=== PATIENT | female | born 1980 | race Caucasian/White ===

== ENCOUNTER 2017-05-30 15:21 | Emergency (ER) | payer MEDICAID ==
[2017-05-30 15:52] VITALS: BP 150/98
--- NOTE | 2017-05-30 16:20 | UC ---
FLU HPI - HPI Summary HPI Summary: Pt presents with runny nose, fatigue, and body aches for the last 2 days. She tells me that her son had the flu 2 weeks ago and she thinks she has it now. She has been taking tylenol for her discomfort. Has felt feverish, but has not taken her temperature. Denies chills, cough, SOB, chest pain, abdominal pain, n/ v/d/c. She is still smoking daily. - History of Current Complaint Chief Complaint: UCRespiratory Stated Complaint: STUFFY NOSE,AND ACHES Hx Obtained From: Patient Hx Last Menstrual Period: now Onset/Duration: Gradual Onset Severity Currently: Mild Severity Initially: Moderate Pain Intensity: 4 Pain Scale Used: 0-10 Numeric - Allergy/Home Medications Allergies/Adverse Reactions: Allergies Allergy/AdvReac Type Severity Reaction Status Date / Time No Known Allergies Allergy Verified 05/30/17 15:51 PMH/Surg Hx/FS Hx/Imm Hx Previously Healthy: Yes - Surgical History Surgical History: None - Family History Known Family History: Positive: None - Social History Occupation: Employed Full-time Lives: With Family Alcohol Use: None Substance Use Type: None Smoking Status (MU): Current Every Day Smoker Amount Used/How Often: 4-5 PER DAY Have You Smoked in the Last Year: Yes Household Exposure Type: Cigarettes Cessation Counseling: Counseled 3+Min - 10 Min - Immunization History Most Recent Tetanus Shot: pt unsure Review of Systems Constitutional: Fatigue, Other - Body aches Skin: Negative Eyes: Negative ENT: Nasal Discharge Respiratory: Negative Cardiovascular: Negative Gastrointestinal: Negative Neurological: Negative Psychological: Negative All Other Systems Reviewed And Are Negative: Yes Physical Exam Triage Information Reviewed: Yes Appearance: No Pain Distress, Well-Nourished, Ill-Appearing Vital Signs: Initial Vital Signs Temp 98.7 F 05/30/17 15:48 Pulse 83 05/30/17 15:48 Resp 18 05/30/17 15:48 BP 150/98 05/30/17 15:48 Pulse Ox 100 05/30/17 15:48 Vital Signs Reviewed: Yes Eyes: Positive: Conjunctiva Clear. Negative: Conjunctiva Inflamed, Discharge ENT: Positive: Hearing grossly normal, Pharynx normal, Nasal drainage, TMs normal, Uvula midline. Negative: Pharyngeal erythema, Nasal congestion, TM bulging, TM dull, TM red, Tonsillar swelling, Tonsillar exudate, Hoarse voice, Sinus tenderness Neck: Positive: Supple, Nontender, No Lymphadenopathy Respiratory: Positive: Chest non-tender, Lungs clear, Normal breath sounds, No respiratory distress, No accessory muscle use Cardiovascular: Positive: RRR, No Murmur, Pulses Normal Neurological: Positive: Alert, Fatigued Psychological: Positive: Age Appropriate Behavior Skin: Negative: rashes Flu Course/Dx - Course Course Of Treatment: POC flu negative. Given her recent exposure to the flu and her current symptoms - new CDC guidelines recommend treatment. - Differential Dx/Diagnosis Provider Diagnoses: Influenza Discharge - Discharge Plan Condition: Stable Disposition: HOME Prescriptions: Oseltamivir CAP* [Tamiflu CAP*] 75 mg PO BID #10 cap Patient Education Materials: Influenza (ED) Referrals: No Primary Care Phys,NOPCP [Primary Care Provider] - Additional Instructions: If you develop a fever, shortness of breath, chest pain, new or worsening symptoms - please call your PCP or go to the ED. Your blood pressure was high at todays visit. Please see your primary provider within 4 weeks for recheck and re-evaluation
== END 2017-05-30 16:38 | disposition home or self-care (01) ==
LOC: UCEAST 15:21
DX: J11.1 Influenza due to unidentified influenza virus with other respiratory manifestations (principal); F17.210 Nicotine dependence, cigarettes, uncomplicated
CPT/HCPCS: 87502; 99212; G0463

== ENCOUNTER 2017-10-03 19:01 | Emergency (ER) | payer OTHER ==
[2017-10-03 19:50] VITALS: BP 127/74
[2017-10-03] MEDS ORDERED: Mupirocin 2% OINT* TUBE TOPICAL ONE (20:03)
--- NOTE | 2017-10-03 20:14 | UC ---
Skin Complaint HPI - HPI Summary HPI Summary: 37 year old female with burn to her lips. She reports she cooked an egg using a microwave and when she took her first bite, the egg burned her lip. She has been applying ice but no other complaints. - History of Current Complaint Chief Complaint: UCBurn Time Seen by Provider: 10/03/17 19:55 Stated Complaint: BURN ON LIPS Hx Last Menstrual Period: 09/24/17 Onset/Duration: Sudden Onset Onset Severity: Mild Pain Intensity: 8 Location: Diffuse - Allergy/Home Medications Allergies/Adverse Reactions: Allergies Allergy/AdvReac Type Severity Reaction Status Date / Time No Known Allergies Allergy Verified 10/03/17 19:50 Home Medications: Home Medications NK [No Home Medications Reported] 10/03/17 [History Confirmed 10/03/17] Review of Systems Constitutional: Negative Skin: Other - burn Eyes: Negative ENT: Negative Respiratory: Negative Cardiovascular: Negative Gastrointestinal: Negative Genitourinary: Negative Motor: Negative Neurovascular: Negative Musculoskeletal: Negative Neurological: Negative Psychological: Negative All Other Systems Reviewed And Are Negative: Yes PMH/Surg Hx/FS Hx/Imm Hx - Surgical History Surgical History: None Surgery Procedure, Year, and Place: denies - Family History Known Family History: Positive: None - Social History Alcohol Use: None Substance Use Type: None Smoking Status (MU): Current Every Day Smoker Amount Used/How Often: 4-5 PER DAY Have You Smoked in the Last Year: Yes Household Exposure Type: Cigarettes - Immunization History Most Recent Tetanus Shot: pt unsure Physical Exam Triage Information Reviewed: Yes Appearance: Well-Appearing, No Pain Distress Vital Signs: Initial Vital Signs Temp 37.3 C 10/03/17 19:46 Pulse 55 10/03/17 19:46 Resp 18 10/03/17 19:46 BP 127/74 10/03/17 19:46 Pulse Ox 97 10/03/17 19:46 Respiratory Exam: Normal Cardiovascular Exam: Normal Musculoskeletal Exam: Normal Skin: Positive: Other - superifical burn to lip, no blister, 0.5cm area No tongue involvment Course/Dx - Differential Diagnoses - Skin Complaint Differential Diagnoses: Cellulitis, Impetigo, Other - Diagnoses Provider Diagnoses: Superifical burn to lips. ICE. Topical abx Discharge - Sign-Out/Discharge Documenting (check all that apply): Discharge/Admit/Transfer - Discharge Plan Condition: Good Disposition: HOME Patient Education Materials: Superficial Burn (ED), Superficial Burn (DC) Referrals: No Primary Care Phys,NOPCP [Primary Care Provider] - - Billing Disposition and Condition Condition: GOOD Disposition: HOME
== END 2017-10-03 20:30 | disposition home or self-care (01) ==
LOC: UCEAST 19:01
DX: T20.02XA Burn of unspecified degree of lip(s), initial encounter (principal); X10.1XXA Contact with hot food, initial encounter; Y93.G3 Activity, cooking and baking; Y92.9 Unspecified place or not applicable; F17.210 Nicotine dependence, cigarettes, uncomplicated
CPT/HCPCS: 99212; G0463

== ENCOUNTER 2018-04-16 10:28 | Emergency (ER) | payer OTHER ==
[2018-04-16 10:50] VITALS: BP 136/78
--- NOTE | 2018-04-16 11:30 | UC ---
Throat Pain/Nasal Suleiman HPI - HPI Summary HPI Summary: 37 y/o female presents to the urgent care c/o sinus congestion, pain and moderate yellowish nasal discharge w/ PND for the past 2 weeks. Pt states she has taking OTC medication w/o any improvement. this morning her both eye are mildly red. she is requesting influenza test since last year she had similar symptoms and it was the flu. Pt states sinus pain is 8/10. she feels body aches , but denies fever, SOB, chest pain, abdominal pain, dizziness, N/V/d, ALY. - History of Current Complaint Chief Complaint: UCGeneralIllness Stated Complaint: SINUS ISSUE Time Seen by Provider: 04/16/18 11:04 Hx Obtained From: Patient Hx Last Menstrual Period: 04/08/18 Onset/Duration: Gradual Onset, Lasting Weeks - 2 weeks, Still Present, Worse Since - 3 days Severity: Moderate Pain Intensity: 8 - sinus pain Pain Scale Used: 0-10 Numeric Cough: Nonproductive Associated Signs & Symptoms: Positive: Sinus Discomfort, Nasal Discharge - yellowish. Negative: Dysphagia, Wheezing, Fever - Epiglottits Risk Factors Epiglottis Risk Factors: Negative - Allergies/Home Medications Allergies/Adverse Reactions: Allergies Allergy/AdvReac Type Severity Reaction Status Date / Time No Known Allergies Allergy Verified 04/16/18 10:45 Home Medications: Home Medications Acetaminophen TAB* [Tylenol TAB*] 650 mg PO Q4H PRN 04/16/18 [History Confirmed 04/16/18] PMH/Surg Hx/FS Hx/Imm Hx Previously Healthy: Yes Respiratory History: Asthma - as a child, now controlled - Surgical History Surgical History: None Surgery Procedure, Year, and Place: denies - Family History Known Family History: Positive: Hypertension, Diabetes - Social History Occupation: Employed Full-time Lives: With Family Alcohol Use: None Substance Use Type: None Smoking Status (MU): Current Every Day Smoker Amount Used/How Often: 3 cigs PER DAY Have You Smoked in the Last Year: Yes Household Exposure Type: Cigarettes - Immunization History Most Recent Tetanus Shot: pt unsure Review of Systems All Other Systems Reviewed And Are Negative: Yes Constitutional: Positive: Chills, Other - body aches Skin: Positive: Negative Eyes: Positive: Negative ENT: Positive: Ear Ache - b/L ear pressure, Nasal Discharge - yellowish, Sinus Congestion, Sinus Pain/Tenderness, Other - PND yellowish Respiratory: Positive: Negative Cardiovascular: Positive: Negative Gastrointestinal: Positive: Negative Genitourinary: Positive: Negative Motor: Positive: Negative Neurovascular: Positive: Negative Musculoskeletal: Positive: Negative Neurological: Positive: Negative Psychological: Positive: Negative Is Patient Immunocompromised?: No Physical Exam - Summary Physical Exam Summary: Vitals: reviewed General: Well developed, well-nourished female patient with NAD. Head and face: Normocephalic and atraumatic, Positive tenderness over the frontal and maxillary sinuses.. Eyes: PERRLA, EOMI x 2. Normal conjunctiva. No eye discharge. ENT: Ears and TM with normal limits. Nose: edematous and erythematous nasal mucosa with with yellowish discharge and erythematous mucosa. Pharynx with erythema, no exudate. moderate +PND yellowish Neck: Supple, no JVD, no carotid bruits and no lymphadenopathy. Lungs: clear, no rales, no rhonchi, no wheezes. CVS: RRR, S1 and S2 present no murmurs or gallops appreciated. Abdomen: soft nontender with positive bowel sounds. Extremities: no edema noted. Neuro: WNL. Skin: warm and dry Triage Information Reviewed: Yes Vital Signs: Initial Vital Signs Temp 98.5 F 04/16/18 10:46 Pulse 93 04/16/18 10:46 Resp 16 04/16/18 10:46 BP 136/78 04/16/18 10:46 Pulse Ox 100 04/16/18 10:46 Throat Pain/Nasal Course/Dx - Course Course Of Treatment: 37 y/o female presents to the urgent care c/o sinus congestion, pain and moderate yellowish nasal discharge w/ PND for the past 2 weeks. Pt states she has taking OTC medication w/o any improvement. this morning her both eye are mildly red. she is requesting influenza test since last year she had similar symptoms and it was the flu. Pt states sinus pain is 8 /10. she feels body aches, but denies fever, SOB, chest pain, abdominal pain, dizziness, N/V/d, ALY. Hx obtained. Pt w/ acute bactrial sinusitis on examination. Rapid influenza A&b=negative. Pt with 2 weeks of symptoms getting worse. Pt Rx Augmentin PO and flonase nasal spray. Discharge instructions explained to Pt. Advised to Return to the clinic or PCP if symptoms do not improve.Pt understood and agreed with plan of care. - Differential Dx/Diagnosis Differential Diagnosis/HQI/PQRI: Laryngitis, Otitis Media, Pharyngitis, Sinusitis, Tonsillitis, URI Provider Diagnosis: Acute bacterial sinusitis Discharge - Sign-Out/Discharge Documenting (check all that apply): Patient Departure - d/c home All imaging exams completed and their final reports reviewed: No Studies - Discharge Plan Condition: Stable Disposition: HOME Prescriptions: Amoxicillin/Clavulanate TAB* [Augmentin TAB 875*] 875 mg PO BID #20 tab Fluticasone NASAL SPRAY 50MCG* [Flonase NASAL SPRAY 50MCG*] 2 spray BOTH NARES DAILY #1 btl Patient Education Materials: Sinusitis (ED) Referrals: [facility] [Outside] - 3 Days Additional Instructions: 1- Please increase fluid intake and rest. take full course of antibiotic to avoid resistance 2-Use Flonase as directed to help drain fluid. Also buy saline drops to clear sinuses 3-continue taking Ibuprofen PO to alleviates sinus pain 4-Return to the clinic or PCP in 3 days if symptoms do not improve for further management and treatment - Billing Disposition and Condition Condition: STABLE Disposition: Home
== END 2018-04-16 12:15 | disposition home or self-care (01) ==
LOC: UCEAST 10:28
DX: J01.90 Acute sinusitis, unspecified (principal); B96.89 Other specified bacterial agents as the cause of diseases classified elsewhere; F17.210 Nicotine dependence, cigarettes, uncomplicated
CPT/HCPCS: 99212; G0463

== ENCOUNTER 2018-06-16 12:53 | Emergency (ER) | payer OTHER ==
[2018-06-16 13:23] VITALS: BP 134/96
--- NOTE | 2018-06-16 13:28 | UC ---
FLU HPI - HPI Summary HPI Summary: 37 year old female, no PMH, no medication, presents with runny nose, congestion ,body aches, loose stools, nausea, mild throat pain. + elevated temp at night. no flu shot. 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 - History of Current Complaint Stated Complaint: FLU LIKE SYMP Time Seen by Provider: 06/16/18 13:21 Hx Obtained From: Patient Hx Last Menstrual Period: 04/08/18 ?: No Onset/Duration: Sudden Onset, Lasting Days - x2 Severity Currently: Mild Severity Initially: Mild Associated Signs & Symptoms: Positive: Fever, Cough, Sore Throat, Nasal Congestion - Allergy/Home Medications Allergies/Adverse Reactions: Allergies Allergy/AdvReac Type Severity Reaction Status Date / Time No Known Allergies Allergy Verified 06/16/18 13:17 Home Medications: Home Medications Amoxicillin/Clavulanate TAB* [Augmentin TAB*] 500 mg PO ONCE 06/16/18 [History Confirmed 06/16/18] Dm/PE/Acetaminophen/Doxylamine [Vicks Nyquil Severe Cold-Flu] 1 each PO ONCE PRN 06/16/18 [History Confirmed 06/16/18] PMH/Surg Hx/FS Hx/Imm Hx Previously Healthy: Yes - Surgical History Surgical History: None Surgery Procedure, Year, and Place: denies - Family History Known Family History: Positive: None, Hypertension, Diabetes - Social History Alcohol Use: None Substance Use Type: None Smoking Status (MU): Current Every Day Smoker Amount Used/How Often: 3 cigs PER DAY Have You Smoked in the Last Year: Yes Household Exposure Type: Cigarettes - Immunization History Most Recent Tetanus Shot: pt unsure Review of Systems All Other Systems Reviewed And Are Negative: Yes Constitutional: Positive: Chills, Fatigue ENT: Positive: Nasal Discharge, Sinus Congestion, Sinus Pain/Tenderness Respiratory: Positive: Cough Is Patient Immunocompromised?: No Physical Exam Triage Information Reviewed: Yes Appearance: No Pain Distress, Well-Nourished, Ill-Appearing - minimal Vital Signs Reviewed: Yes Eyes: Positive: Conjunctiva Clear ENT: Positive: Pharynx normal, TMs normal, Tonsillar swelling - chronically enlarge tonsilllar swelling, patient confirms, Sinus tenderness, Uvula midline. Negative: TM bulging, TM dull, TM red, Tonsillar exudate Neck: Positive: Supple, Nontender, No Lymphadenopathy. Negative: Nuchal Rigidity Respiratory: Positive: Chest non-tender, Lungs clear, Normal breath sounds, No respiratory distress, No accessory muscle use. Negative: Crackles, Rhonchi, Stridor, Wheezing Cardiovascular: Positive: RRR, No Murmur Neurological Exam: Normal Psychological Exam: Normal Flu Course/Dx - Course Course Of Treatment: rapid flu negative, liley viral illness, conservative OTC treatment return if worsens - Differential Dx/Diagnosis Differential Diagnosis/HQI/PQRI: Influenza, Upper Respiratory Infection Provider Diagnosis: URI (upper respiratory infection) Discharge - Sign-Out/Discharge Documenting (check all that apply): Patient Departure All imaging exams completed and their final reports reviewed: No Studies - Discharge Plan Condition: Good Disposition: HOME Patient Education Materials: Viral Syndrome (ED) Referrals: No Primary Care Phys,NOPCP [Primary Care Provider] - Additional Instructions: - Increase fluid intake to prevent dehydration - Follow up with primary physician within 5-7 days for re-evaluation - Tylenol/ Motrin as needed for pain, may alternate between the two - Over the counter medication as needed for symptoms - Go to ER with shortness of breath, chest pain, increased pain, neck pain, fever > 102 not brought down by motrin/ tylenol - Billing Disposition and Condition Condition: GOOD Disposition: Home
[2018-06-16 13:40] LABS: Influenza A Molecular NEGATIVE (Negative); Influenza B Molecular NEGATIVE (Negative)
== END 2018-06-16 13:52 | disposition home or self-care (01) ==
LOC: UCEAST 12:53
DX: J06.9 Acute upper respiratory infection, unspecified (principal); F17.210 Nicotine dependence, cigarettes, uncomplicated
CPT/HCPCS: 99211; G0463